=== PATIENT | male | born 1955 | race Caucasian/White ===

== ENCOUNTER 2022-03-19 07:47 | Day surgery (SDC) | payer MEDICARE, BC ==
[2022-03-17 14:22] VITALS: BMI 25.8
[~2022-03-19 07:47] MED LIST: LACTATED RINGERS 1,000 ML IV SCH
[2022-03-19 08:02] VITALS: TEMP 98.1
[2022-03-19] MEDS ORDERED: LIDOCAINE 2% INJ 20 MG/ML (2 ML VIAL) ONE (08:32)
[2022-03-19] MEDS ORDERED: MIDAZOLAM 2 MG/2 ML VIAL ONE (08:32)
[2022-03-19] MEDS ORDERED: PROPOFOL 10 MG/ML 20 ML VIAL IV ONE (08:32)
[2022-03-19] MEDS ORDERED: fentaNYL (PF) 50 MCG/ML 2 ML AMP ONE (08:32)
--- NOTE | 2022-03-19 08:38 | P.HPIHPCON ---
History of Present Illness H&P Date: 03/19/22 67-year-old male presents today for screening colonoscopy. He denies blood in his stool. Believes that he has had polyps in the past. Denies any family history with colon cancer. Consent for Procedure: I have explained the operation/procedure to the patient, including the risks, benefits, side effects, alternative therapies (including not receiving the proposed treatment or service), the likelihood of the patient achieving his/her goals, and potential recuperation problems for the procedure/sedation/analgesia, as well as any blood products, if indicated. I also explained to the patient the risks, benefits and side effects of the alternatives, as well as the risks related to not receiving the proposed procedure, care, treatment, or services. - Review of Systems All systems: negative Past Medical History Past Medical History: Hyperlipidemia, Osteoarthritis (OA) Additional Past Medical History / Comment(s): CHRONIC BACK PAIN/ARTHRITIS IN HANDS History of Any Multi-Drug Resistant Organisms: None Reported Past Surgical History: Orthopedic Surgery Additional Past Surgical History / Comment(s): BILATERAL KNEE SCOPES, colonoscopy. Past Anesthesia/Blood Transfusion Reactions: No Reported Reaction Smoking Status: Never smoker - Past Family History Sister(s) Family Medical History: Cancer Medications and Allergies Home Medications Medication Instructions Recorded Confirmed Type Ascorbic Acid [Vitamin C] 500 mg PO DAILY 06/06/15 03/17/22 History [place]eral-3 Fatty Acids/Fish Oil [Fish 1 tab PO DAILY 06/06/15 03/17/22 History Oil 1,000 mg Softgel] Pravastatin Sodium [Pravachol] 80 mg PO HS 06/06/15 03/17/22 History Vitamin B Complex 1 tab PO DAILY 06/06/15 03/17/22 History traMADol HCL [Tramadol HCl] 50 mg PO DAILY PRN 06/06/15 03/17/22 History Multivitamins, Thera [Multivitamin 1 tab PO DAILY 03/17/22 03/17/22 History (formulary)] Allergies Allergy/AdvReac Type Severity Reaction Status Date / Time No Known Allergies Allergy Verified 03/19/22 08:01 Surgical - Exam Osteopathic Statement: *. No significant issues noted on an osteopathic structural exam other than those noted in the History and Physical/Consult. Vital Signs Temp Pulse Resp BP Pulse Ox 98.1 F 79 20 139/78 98 03/19/22 08:02 03/19/22 08:02 03/19/22 08:02 03/19/22 08:02 03/19/22 08:02 - General well nourished, no distress - Eyes normal ocular movement - ENT no hearing loss - Neck trachea midline - Respiratory normal respiratory effort - Abdomen Abdomen: soft, non tender - Psychiatric oriented to time, oriented to person, oriented to place Assessment and Plan Plan: 67-year-old male presents today for screening colonoscopy. Risks, benefits and alternatives were provided. Further recommendations after procedure is completed.
--- NOTE | 2022-03-19 08:56 | P.PCN ---
Date of Procedure: 03/19/22 Preoperative Diagnosis: Screening Postoperative Diagnosis: Rectal polyp Procedure(s) Performed: Colonoscopy with hot snare polypectomy Anesthesia: MAC Surgeon: Kenan Marquis Pathology: other (Rectal polyp) Condition: stable Disposition: same day Indications for Procedure: 67-year-old male presents today for screening colonoscopy. He states he has had a history of polyps. Denies any blood in his stool. Denies any family history of colon cancer. Operative Findings: Rectal polyp Description of Procedure: The patient was brought into the endoscopy suite and placed in left lateral decubitus position and adequate sedation was achieved using conscious sedation. A digital rectal exam was performed and mild internal hemorrhoids were palpated. An endoscope was then placed in the rectum and advanced to the cecum was identified by landmarks including the appendiceal orifice and the ileocecal valve. The prep was good. The colonoscope was then slowly withdrawn, examining for any mucosal abnormalities. The cecum, ascending, transverse, descending and sigmoid colon were visualized adequately. There were no obvious neoplastic lesions throughout the colon. There was a notable polyp in the rectum. This was removed with hot snare polypectomy. Hemostasis was maintained. There is no evidence of diverticulosis. Retroflexion was performed in the rectum and internal hemorrhoids were visible. Excess air was removed, the colonoscope withdrawn and the procedure terminated. The patient was then transferred to the recovery unit in stable condition. Repeat colonoscopy should be performed in 5 years.
[2022-03-19 09:38] VITALS: BP 128/74; PULSE 79; RESP 15
== END 2022-03-19 09:49 | disposition home or self-care (01) ==
LOC: ORWHC2ENDO 07:47
PROVIDERS: ATTEND Surgery
DX: Z12.11 Encounter for screening for malignant neoplasm of colon (principal); D12.8 Benign neoplasm of rectum; Z86.010 Personal history of colon polyps; K64.8 Other hemorrhoids; E78.5 Hyperlipidemia, unspecified; M19.90 Unspecified osteoarthritis, unspecified site; G89.29 Other chronic pain; M54.9 Dorsalgia, unspecified; Z98.890 Other specified postprocedural states; Z80.9 Family history of malignant neoplasm, unspecified; Z97.2 Presence of dental prosthetic device (complete) (partial); Z79.899 Other long term (current) drug therapy
CPT/HCPCS: 88305; 45385; J2250; J3010; J2704; J2001

== ENCOUNTER 2024-02-29 06:21 | Day surgery (SDC) | payer MEDICARE, BC ==
--- NOTE | 2024-02-28 10:14 | P.HPOR ---
History of Present Illness H&P Date: 02/28/24 Subjective: This is a 68 year old male that presents today for initial evaluation regarding a several year history of progressively worsening right and left hand paresthesias in the thumb, index, middle and ring fingers. He also has occasional numbness and tingling in the left ring and small finger. He complains of right middle finger knuckle pain as well with pain with maximum flexion or extension. He denies any injury. The patient has tried bracing with minimal relief. They deny any inciting event or neck pain. Physical Examination: RUE: AIN/PIN/Radial/Ulnar/Median motor intact. Radial/Ulnar/Median SILT. 2+/4 Radial/Ulnar pulses palpated. 5/5 APB, 5/5 FDI. Negative Finkelsteins, negative CMC grind, positive Durkan's compression. LUE: AIN/PIN/Radial/Ulnar/Median motor intact. Radial/Ulnar/Median SILT. 2+/4 R adial/Ulnar pulses palpated. 5/5 APB, 3/5 FDI with atrophy. Negative Finkelsteins, negative CMC grind, positive Durkan's compression. Imaging: X-rays of the right hand 3V taken in office today demonstrate severe thumb CMC arthritis EMG/NCV: EMG/NCV performed on 09/13/23 demonstrates bilateral severe carpal tunnel syndrome. 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 Impression: 1.) Bilateral carpal tunnel syndrome, severe. 2.) Left cubital tunnel syndrome Plan: Diagnosis and treatment options were discussed with the patient. The patient has failed conservative treatment and would like to pursue a right endoscopic vs open carpal tunnel release. Risks and benefits of surgery including bleeding, infection, damage to surrounding tissue, need for further surgery, possible need to convert to open procedure, residual numbness due to severe pre-operative findings were discussed and the patient wished to go forward with surgery. CC: Ra Ritchie DO -cD Modi DO Orthopedic Hand/Upper Extremity Surgeon Past Medical History Past Medical History: Hyperlipidemia, Osteoarthritis (OA) Additional Past Medical History / Comment(s): CHRONIC BACK PAIN/ARTHRITIS IN HANDS; [place] hand/wrist numbness and pain x 7 months. History of Any Multi-Drug Resistant Organisms: None Reported Past Surgical History: Heart Catheterization, Hernia Repair, Orthopedic Surgery Additional Past Surgical History / Comment(s): [place] knee arthroscopy 1992 and 1994, colonoscopy, heart cath age 45 Past Anesthesia/Blood Transfusion Reactions: No Reported Reaction Smoking Status: Never smoker - Past Family History Sister(s) Family Medical History: Cancer Medications and Allergies Home Medications Medication Instructions Recorded Confirmed Type Ascorbic Acid [Vitamin C] 500 mg PO DAILY 06/06/15 02/24/24 History [place]-3 Fatty Acids/Fish Oil [Fish 1 tab PO DAILY 06/06/15 02/24/24 History Oil 1,000 mg Softgel] Pravastatin Sodium [Pravachol] 40 mg PO HS 06/06/15 02/24/24 History traMADol HCL 50 mg PO DAILY PRN 06/06/15 02/24/24 History Multivitamins, Thera [Multivitamin 1 tab PO DAILY 03/17/22 02/24/24 History (formulary)] Vitamin D 1 tab PO DAILY 02/24/24 02/24/24 History Allergies Allergy/AdvReac Type Severity Reaction Status Date / Time No Known Allergies Allergy Verified 02/24/24 14:38 Physical Examination Osteopathic Statement: *. No significant issues noted on an osteopathic structural exam other than those noted in the History and Physical/Consult.
[~2024-02-29 06:21] MED LIST changes: -LACTATED RINGERS 1,000 ML IV SCH; +Pre Op ABX Message 1 EACH MISC MISCELLANE ONE
[2024-02-29] MEDS: IV FLUID CONTINUATION 1,000 ML IV ONE (06:35)
[2024-02-29] MEDS: ONDANSETRON 4 MG/2 ML VIAL IVP PRN (07:04)
[2024-02-29] MEDS: DEXAMETHASONE SOD PHOSPHATE 4 MG/ML 1 ML VIAL IVP STA (07:05)
[2024-02-29] MEDS: LACTATED RINGERS 1,000 ML IV SCH (07:07)
[2024-02-29 07:18] VITALS: TEMP 97.3
[2024-02-29] MEDS ORDERED: LIDOCAINE 1% INJ 10MG/ML (20 ML MDV) ONE (07:18)
[2024-02-29] MEDS ORDERED: fentaNYL (PF) 50 MCG/ML 2 ML AMP ONE (07:18)
[2024-02-29] MEDS ORDERED: PROPOFOL 10 MG/ML 20 ML VIAL IV ONE (07:18)
[2024-02-29] MEDS ORDERED: MIDAZOLAM 2 MG/2 ML VIAL ONE (07:18)
[2024-02-29] MEDS: BUPIVACAINE (PF) 0.5% 30 ML VIAL SQ ONE ×2 (07:25→07:27)
[2024-02-29] MEDS: LIDOCAINE 2% INJ 20 MG/ML SQ ONE ×2 (07:25→07:27)
[2024-02-29 07:51] VITALS: RESP 16
--- NOTE | 2024-02-29 07:55 | P.OP ---
Date of Procedure: 02/29/24 Preoperative Diagnosis: Right carpal tunnel syndrome Postoperative Diagnosis: Right carpal tunnel syndrome Procedure(s) Performed: Right endoscopic carpal tunnel release Anesthesia: MAC Surgeon: Dc Modi Estimated Blood Loss (ml): 0 Pathology: none sent Condition: stable Description of Procedure: This is a 69 year old male who presents today for a right endoscopic carpal tunnel release after having failed conservative treatment in the past. Risks and benefits of surgery were discussed with the patient including bleeding, damage to surrounding tissue, infection, need to convert to open procedure, need for further surgery as well as risks of anesthesia including pulmonary embolism and even and the patient wished to proceed with surgical intervention. The patients was seen in the pre-operative area by myself. Consent and H&P were completed and updated. The correct extremity was marked in the pre-operative area by myself and all other questions were answered. Operative Narrative: The patient was brought to the operating room by the department of anesthesi a. They remained on the portable stretcher and a rolling hand table was brought to the side of the operative extremity. Pre-operative time out was performed indicating the correct patient, procedure and laterality. All in the room agreed. The patient was then drifted off to sleep by the department of anesthesia. MAC anesthesia was utilized and a 50:50 mixture of 1% Lidocaine and 0.5% bupivacaine was injected into the subcutaneous tissues of the palmar skin, 8ccs total. A nonsterile tourniquet was then applied to the operative extremity and the right upper extremity was then prepped and draped in normal sterile fashion. The operative extremity was the exsanguinated with an esmarch bandage and the tourniquet was inflated to 250mmHg. 15 blade scalpel was utilized to make a transverse incision on the palmar skin just ulnar to the palmaris longus tendon at the level of the distal wrist crease. Ragnell retractor was then placed radially and blunt dissection was performed to reveal the distal forearm fascia. This was lifted with fine Uday pick ups and Littler tenotomy scissors were then used to open the forearm fascia transversely and a double skin hook was then placed. Hamate finder was placed into the carpal tunnel and then sequential sized dilators were inserted followed by the synovial elevator to separate the flexor tenosynovium from the undersurface of the transverse carpal ligament and a washboard texture was felt. The MicroAire endoscopic carpal tunnel release system gun was the then inserted into the carpal tunnel hugging the deep portion of the transverse carpal ligament in line with the base of the ring finger. Transverse fibers of the ligament were directly visualized. Pressure was applied on the palm to reveal the distal extent of the transverse carpal ligament. The blade was then deployed and the distal half of the transverse carpal ligament was released. The scope was then brought distal again and remaining transverse fibers were incised with the blade. The proximal half of the transverse carpal ligament was then divided and again the scope was advanced distal and remaining transverse fibers were incised with the blade. The radial and ulnar leaflets were directly visualized and mobile consistent with complete release. Tenotomy scissors were then utilized to release the remaining distal forearm fascia under direct visualization taking care to preserve the palmar cutaneous branch of the median nerve. Skin closure was performed with interrupted 4-0 Monocryl suture followed by steri strips. Sterile dressing was applied consisting 4x4s, Webril, and an nadia bandage. Tourniquet was let down and the hand immediately was well perfused. The patient was then woken by the department of anesthesia and transferred to PACU in stable condition. Dc Modi D.O. Orthopedic Hand/Upper Extremity Surgeon
[2024-02-29 08:17] VITALS: BP 123/80; PULSE 66
== END 2024-02-29 08:22 | disposition home or self-care (01) ==
LOC: OR 06:21
PROVIDERS: ATTEND Orthopaedic Surgery Hand Surgery
DX: G56.03 Carpal tunnel syndrome, bilateral upper limbs (principal); G56.22 Lesion of ulnar nerve, left upper limb; E78.5 Hyperlipidemia, unspecified; M19.90 Unspecified osteoarthritis, unspecified site; Z79.899 Other long term (current) drug therapy
CPT/HCPCS: 29848; J2001 ×2; J2250; J1100; J2405; J3010; J2704; J0665

== ENCOUNTER 2024-04-25 07:37 | Day surgery (SDC) | payer MEDICARE, BC ==
--- NOTE | 2024-04-23 11:17 | P.HPOR ---
History of Present Illness H&P Date: 04/23/24 Subjective: This is a 69 year old male that presents today for a post-operative visit after undergoing right endoscopic carpal tunnel release on 02/29/24. They state they have resolved numbness and mild pain in the palm and have been using the hand as tolerated. He is scheduled for is left carpal tunnel release on 04/04/24. Physical Examination: RUE: AIN/PIN/Radial/Ulnar/Median motor intact. Radial/Ulnar/Median SILT. 2+/4 Radial/Ulnar pulses palpated. Incision well healed. Able to make a full fist. Impression: 1.) S/P Right endoscopic carpal tunnel release 2.) Left carpal tunnel syndrome, severe. Plan: Diagnosis and treatment options were discussed with the patient. They are healing as expected and may continue to use the hand as tolerated. He wishes to go forward with a left endoscopic vs open carpal tunnel release. Risks and benefits of surgery including bleeding, infection, damage to surrounding tissue, need for further surgery, possible need to convert to open procedure, residual numbness were discussed and the patient wished to go forward with surgery. The patient is agreeable with this plan. -Dc Modi DO Orthopedic Hand/Upper Extremity Surgeon Past Medical History Past Medical History: Hyperlipidemia, Osteoarthritis (OA) Additional Past Medical History / Comment(s): CHRONIC BACK PAIN/ARTHRITIS IN HANDS; [place] hand/wrist numbness and pain x 7 months. History of Any Multi-Drug Resistant Organisms: None Reported Past Surgical History: Heart Catheterization, Hernia Repair, Orthopedic Surgery Additional Past Surgical History / Comment(s): [place] knee arthroscopy 1992 and 1994, colonoscopy, heart cath age 45 Past Anesthesia/Blood Transfusion Reactions: No Reported Reaction Smoking Status: Never smoker - Past Family History Sister(s) Family Medical History: Cancer Medications and Allergies Home Medications Medication Instructions Recorded Confirmed Type Ascorbic Acid [Vitamin C] 500 mg PO DAILY 06/06/15 02/24/24 History [place]-3 Fatty Acids/Fish Oil [Fish 1 tab PO DAILY 06/06/15 02/24/24 History Oil 1,000 mg Softgel] Pravastatin Sodium [Pravachol] 40 mg PO HS 06/06/15 02/24/24 History traMADol HCL 50 mg PO DAILY PRN 06/06/15 02/24/24 History Multivitamins, Thera [Multivitamin 1 tab PO DAILY 03/17/22 02/24/24 History (formulary)] Vitamin D 1 tab PO DAILY 02/24/24 02/24/24 History Allergies Allergy/AdvReac Type Severity Reaction Status Date / Time No Known Allergies Allergy Verified 02/24/24 14:38 Physical Examination Osteopathic Statement: *. No significant issues noted on an osteopathic structural exam other than those noted in the History and Physical/Consult.
[~2024-04-25 07:37] MED LIST changes: +HYDROmorphone 0.5 MG/0.5 ML SYRINGE IVP PRN; +LIDOCAINE 1% (10MG/ML) FOR IV START INTRADERMA PRN
[2024-04-25] MEDS: LACTATED RINGERS 1,000 ML IV SCH (08:09)
[2024-04-25] MEDS: ONDANSETRON 4 MG/2 ML VIAL IVP ONE (08:09)
[2024-04-25 08:12] VITALS: TEMP 97
[2024-04-25] MEDS: IV FLUID CONTINUATION 1,000 ML IV ONE (08:15)
[2024-04-25] MEDS ORDERED: PROPOFOL 10 MG/ML 20 ML VIAL IV ONE (08:28)
[2024-04-25] MEDS ORDERED: fentaNYL (PF) 50 MCG/ML 2 ML AMP ONE (08:28)
[2024-04-25] MEDS ORDERED: MIDAZOLAM 2 MG/2 ML VIAL ONE (08:28)
[2024-04-25] MEDS: LIDOCAINE 2% INJ 20 MG/ML SQ ONE ×2 (08:32→08:36)
[2024-04-25] MEDS: BUPIVACAINE (PF) 0.5% 30 ML VIAL SQ ONE ×2 (08:32→08:36)
[2024-04-25 09:26] VITALS: RESP 16
[2024-04-25 09:27] VITALS: BP 115/79; PULSE 70
--- NOTE | 2024-05-30 09:19 | P.OP ---
Date of Procedure: 04/25/24 Preoperative Diagnosis: Left carpal tunnel syndrome Postoperative Diagnosis: Left carpal tunnel syndrome Procedure(s) Performed: Left endoscopic carpal tunnel release Anesthesia: MAC Surgeon: Dc Modi Supervisor Yard #1: Lauro Booker Estimated Blood Loss (ml): 0 Pathology: none sent Condition: stable Disposition: PACU Description of Procedure: This is a 69 year old male who presents today for a left endoscopic carpal tunnel release after having failed conservative treatment in the past. Risks and benefits of surgery were discussed with the patient including bleeding, damage to surrounding tissue, infection, need to convert to open procedure, need for further surgery as well as risks of anesthesia including pulmonary embolism and even and the patient wished to proceed with surgical intervention. The patients was seen in the pre-operative area by myself. Consent and H&P were completed and updated. The correct extremity was marked in the pre-operative area by myself and all other questions were answered. Operative Narrative: The patient was brought to the operating room by the department of anesthesia. They remained on the portable stretcher and a rolling hand table was brought to the side of the operative extremity. Pre-operative time out was performed indicating the correct patient, procedure and laterality. All in the room agreed. The patient was then drifted off to sleep by the department of anesthesia. MAC anesthesia was utilized and a 50:50 mixture of 1% Lidocaine and 0.5% bupivacaine was injected into the subcutaneous tissues of the palmar skin, 8ccs total. A nonsterile tourniquet was then applied to the operative extremity and the left upper extremity was then prepped and draped in normal sterile fashion. The operative extremity was the exsanguinated with an esmarch bandage and the tourniquet was inflated to 250mmHg. 15 blade scalpel was utilized to make a transverse incision on the palmar skin just ulnar to the palmaris longus tendon at the level of the distal wrist crease. Ragnell retractor was then placed radially and blunt dissection was performed to reveal the distal forearm fascia. This was lifted with fine Uday pick ups and Littler tenotomy scissors were then used to open the forearm fascia transversely and a double skin hook was then placed. Hamate finder was placed into the carpal tunnel and then sequential sized dilators were inserted followed by the synovial elevator to separate the flexor tenosynovium from the undersurface of the transverse carpal ligament and a washboard texture was felt. The MicroAire endoscopic carpal tunnel release system gun was the then inserted into the carpal tunnel hugging the deep portion of the transverse carpal ligament in line with the base of the ring finger. Transverse fibers of the ligament were directly visualized. Pressure was applied on the palm to reveal the distal extent of the transverse carpal ligament. The blade was then deployed and the distal half of the transverse carpal ligament was released. The scope was then brought distal again and remaining transverse fibers were incised with the blade. The proximal half of the transverse carpal ligament was then divided and again the scope was advanced distal and remaining transverse fibers were incised with the blade. The radial and ulnar leaflets were directly visualized and mobile consistent with complete release. Tenotomy scissors were then utilized to release the remaining distal forearm fascia under direct visualization taking care to preserve the palmar cutaneous branch of the median nerve. Skin closure was performed with interrupted 4-0 Monocryl suture followed by steri strips. Sterile dressing was applied consisting 4x4s, Webril, and an nadia bandage. Tourniquet was let down and the hand immediately was well perfused. The patient was then woken by the department of anesthesia and transferred to PACU in stable condition. Lauro GAMBINO was present for the case in its entirety and assisted in major portions of the case and protection of vital neurovascular structures. Dc Modi D.O. Orthopedic Hand/Upper Extremity Surgeon
== END 2024-04-25 09:39 | disposition home or self-care (01) ==
LOC: OR 07:37
PROVIDERS: ATTEND Orthopaedic Surgery Hand Surgery
DX: G56.02 Carpal tunnel syndrome, left upper limb (principal); E78.5 Hyperlipidemia, unspecified; M19.042 Primary osteoarthritis, left hand; Z98.890 Other specified postprocedural states; Z79.899 Other long term (current) drug therapy
CPT/HCPCS: J2001; J2250; J2405; J3010; J2704; J0665

== ENCOUNTER → 2024-08-20 | Outpatient (CLI) | payer MEDICARE, BC ==
--- NOTE | 2024-08-20 13:59 | MR ---
EXAMINATION TYPE: MR shoulder LT wo con DATE OF EXAM: 08/20/2024 11:37 AM COMPARISON: X-ray 08/14/2024 CLINICAL INDICATION: Male, 69 years old with history of M25.512 L shoulder pain, Left shoulder pain, no trauma. IV Contrast: cc (None if empty) TECHNIQUE: Multiplanar, multisequence imaging of the shoulder is performed without contrast. FINDINGS: Rotator Cuff: There is a through thickness partial tear of the distal margin of the supraspinatus ten don with minimal residual posterior fibers. Infraspinatus tendon appears intact. There is some increased bursal surface signal along the posterio r fibers likely representing degree of bursal scuffing. The very anterior fibers within the conjoined tendon demonstrate increased signal at the insertion compatible with tendinosis Subscapularis tendon appears intact Acromioclavicular Joint: There is mild to moderate hypertrophic arthropathy of the AC joint. There is mild mass effect upon the superior margin of the supraspinatus tendon and muscle. There is a small a mount fluid in the subacromial subdeltoid space. Glenohumeral Joint: Mild glenohumeral joint space arthropathy. Trace amount of fluid likely physiolog ic. Inferior glenohumeral ligament intact. Labrum: The labrum appears grossly intact given limitation of non-arthrogram study. Biceps Tendon: The long head of biceps is in normal location within bicipital groove. However, there is increased fluid surrounding the bicipital tendon compatible with tendinosis. Within the rotator in terval there is thickening and diffuse increased signal of the biceps tendon suggestive of severe ten dinosis. A partial split tear not excluded. Bone marrow signal: Marrow changes involving the AC joint are likely post arthritic and reactive. Other: No additional significant abnormality is appreciated. IMPRESSION: 1. Diffuse tendinopathy of the distal supraspinatus tendon with a near-complete partial through thick ness tear. A few residual posterior fibers remain intact. 2. Tendinosis anterior fibers insertion infraspinatus tendon. 3. Bicipital tendinosis with and increased signal within the tendon at the level of the rotator inter seth. 4. Mild impingement. [facility], , 08/20/2024 1:57 PM
== END | disposition home or self-care (01) ==
LOC: RADMRIMAIN 11:04
PROVIDERS: ATTEND Orthopaedic Surgery
DX: M75.112 Incomplete rotator cuff tear or rupture of left shoulder, not specified as traumatic (principal); M67.814 Other specified disorders of tendon, left shoulder; M25.812 Other specified joint disorders, left shoulder; M12.812 Other specific arthropathies, not elsewhere classified, left shoulder

== ENCOUNTER 2024-10-18 07:48 | Day surgery (SDC) | payer MEDICARE, BC ==
--- NOTE | 2024-10-17 23:17 | HP ---
HISTORY AND PHYSICAL DATE OF SURGERY: 10/18/2024. HISTORY OF PRESENT ILLNESS: Ayo Snyder is a 69-year-old gentleman, seen with progressive left shoulder pain. We discussed options regarding treatment. He elected to proceed with left shoulder arthroscopy. Consent was obtained. PAST MEDICAL HISTORY: Hyperlipidemia. PAST SURGICAL HISTORY: Knee arthroscopy and herniorrhaphy. DAILY MEDICATIONS: 1. Pravastatin. 2. Tramadol. 3. Motrin. ALLERGIES: None. SOCIAL HISTORY: Denies tobacco use. PHYSICAL EVALUATION OF THE LEFT SHOULDER: Flexion is 100 degrees. Abduction is 70 degrees. External rotation is 40 degrees with weakness and pain. Tenderness along the anterolateral acromion, bicipital groove, rotator cuff tendon, long head biceps tendon. Impingement sign is positive at 80 degrees. Cross-body adduction sign is positive. Drop-arm sign is positive. Distal neurovascular exam is intact. IMAGING STUDIES: Left shoulder radiographs revealed a type 2 acromion, cystic changes of the tuberosity. MRI of left shoulder, rotator cuff tendon tear, biceps tendonitis, impingement. IMPRESSION: 1. Left shoulder impingement with rotator cuff tear. 2. Left shoulder bicipital tendinitis. 3. Left shoulder acromioclavicular joint osteoarthritis. 4. Hyperlipidemia. PLAN: Left shoulder arthroscopy with subacromial decompression, arthroscopic rotator cuff repair, biceps tenodesis, Ricarda, and debridement. MMODL / IJN: [id number] /
[2024-10-18] MEDS ORDERED: LIDOCAINE 1% (10MG/ML) FOR IV START INTRADERMA PRN (07:50)
[2024-10-18] MEDS ORDERED: fentaNYL (PF) 50 MCG/ML 2 ML AMP IVP PRN (07:50)
[2024-10-18] MEDS ORDERED: HYDROmorphone 0.5 MG/0.5 ML SYRINGE IVP PRN (07:50)
[2024-10-18] MEDS: IV FLUID CONTINUATION 1,000 ML IV ONE (07:53)
[2024-10-18] MEDS: LACTATED RINGERS 1,000 ML IV SCH (08:30)
[2024-10-18] MEDS: MIDAZOLAM 2 MG/2 ML VIAL IV PRN (08:44)
--- NOTE | 2024-10-18 08:56 | P.ANPRN ---
Procedure Note - Anesthesia - Nerve Block Performed Left Interscalene Single Time Out Performed: Yes Date of Procedure: 10/18/24 Procedure Start Time: 08:43 Procedure Stop Time: 08:48 Location of Patient: PreOp Indication: Acute Post-Operative Pain, Analgesia, Requested by Surgeon Sedation Type: Sedate with meaningful contact maintained Preparation: Sterile Prep Position: Sitting Catheter: None Needle Types: Pajunk Needle Gauge: 21 Ultrasound used to visualize needle placement: Yes Ultrasound used to observe medication spread: Yes Injectate: 0.5% Ropivacaine (see comment for volume) (Ropiv 20ml+[id number]) Blood Aspirated: No Pain Paresthesia on Injection Noted: No Resistance on Injection: Normal Image Stored and Saved: Yes Events: Uneventful and Well Tolerated
[2024-10-18] MEDS: ONDANSETRON 4 MG/2 ML VIAL IVP ONE (09:00)
[2024-10-18] MEDS: DEXAMETHASONE SOD PHOSPHATE 4 MG/ML 1 ML VIAL IV ONE (09:01)
[2024-10-18] MEDS ORDERED: PROPOFOL 10 MG/ML 20 ML VIAL IV ONE (09:25)
[2024-10-18] MEDS ORDERED: DEXAMETHASONE SOD PHOSPHATE 4 MG/ML 1 ML VIAL ONE (09:25)
[2024-10-18] MEDS ORDERED: MIDAZOLAM 2 MG/2 ML VIAL ONE (09:25)
[2024-10-18] MEDS ORDERED: KETOROLAC 15 MG/ML 1 ML VIAL ONE (09:25)
[2024-10-18] MEDS ORDERED: ROPIVACAINE 5 MG/ML 30 ML VIAL ONE (09:25)
[2024-10-18] MEDS ORDERED: LIDOCAINE 1% INJ 10MG/ML (20 ML MDV) ONE (09:25)
[2024-10-18] MEDS ORDERED: fentaNYL (PF) 50 MCG/ML 2 ML AMP ONE (09:25)
[2024-10-18] MEDS ORDERED: LIDOCAINE 4% LTA KIT (4 ML) TOPICAL ONE (09:25)
[2024-10-18] MEDS ORDERED: SUCCINYLCHOLINE CHLORIDE 200 MG/10 ML VIAL IV ONE (09:25)
[2024-10-18 11:06] VITALS: TEMP 97.1
--- NOTE | 2024-10-18 11:08 | P.OP ---
Date of Procedure: 10/18/24 Preoperative Diagnosis: Left shoulder impingement Postoperative Diagnosis: 1. Left shoulder rotator cuff tear 2. Left shoulder impingement 3. Left shoulder partial long head biceps tendon tear 4. Left shoulder acromioclavicular joint osteoarthritis 5. Left shoulder superficial labral tear Procedure(s) Performed: 1. Left shoulder arthroscopic rotator cuff repair 2. Left shoulder arthroscopic subacromial decompression 3. Left shoulder arthroscopic biceps tenodesis 4. Left shoulder arthroscopic Ricarda procedure 5. Left shoulder arthroscopic debridement labral tear Implants: 5Arthrex 4.75 swivel lock anchors Anesthesia: GETA, regional (Interscalene block) Surgeon: Fer Batres Patient Safety Officer #1: Vu Helton Estimated Blood Loss (ml): 10 Pathology: none sent Condition: stable Disposition: PACU Indications for Procedure: 69-year-old gentleman seen with progressive left shoulder pain. After having treatment options discussed, he elected to proceed with arthroscopy. Operative Findings: See description of procedure Description of Procedure: Patient underwent an interscalene block by department of anesthesia. The patient was then taken to the operative suite. The patient underwent a general anesthetic by the department of anesthesia. The patient was placed into a lateral position and secured. There was appropriate padding of the bony promi nence. Left shoulder was then prepped and draped in normal sterile orthopedic fashion. We placed the extremity in 10 pounds of longitudinal traction. A posterior incision was now made for a posterior working portal site. The trocar and cannula were inserted into the glenohumeral joint. Arthroscopy was initiated. Spinal needle was now inserted anteriorly, to ascertain the anterior working portal site. An incision was now made in that area, a trocar was inserted followed by a probe. There was significant partial tearing long head biceps tendon along with hyperemia. There was some superficial tearing of the superior labrum. There was no significant chondromalacia present. Reduced a motorized shaver and debrided out the superficial labral tear getting down to stable labral tissue. I decided to proceed with arthroscopic biceps tenodesis. I introduced the cannula through the anterior portal site. I passed a loop and tack type stitch through the biceps tendon. I released the biceps tendon from the superior labral anchor. With the assistance of a Aiden GAMBINO I punched hole at the interval for insertion of an anchor. I passed the suture limb through the eyelet of an Arthrex 4.75 swivel lock anchor. I placed the swivel lock anchor eyelet into the prepunch hole. I held it in position while Aiden GAMBINO tensioned the suture and deployed the anchor with good fixation noted. The residual suture limb was clipped. We had a stable appearing biceps tenodesis. Instruments were now removed from the glenohumeral joint. Utilizing the posterior working portal site, the trocar and cannula were inserted into the subacromial space. Arthroscopy initiated. I made an incision 2 fingerbreadths lateral to the acromion. I introduced my trocar followed by my ArthroCare ablator. I now began ablating thick subacromial bursal tissue, which exposed the undersurface of the anterior acromion. There was diminished subacromial space. There was a very prominent anterior acromion. A motorized bur was introduced and a subacromial decompression was performed. I also excised some osteophytes off the inferior aspect of the distal clavicle. The AC joint was visualized and noted to be fairly arthritic. The motorized bur was introduced in the anterior portal site and a Ricarda procedure was performed without difficulty, decompressing the AC joint nicely. I turned my attention to the rotator cuff. There was a 2.53 cm rotator cuff tear. I debrided the margins getting down to stable tendon tissue. The defect/tear measured nearly 3 cm but was freely mobile over the footprint. I introduced my motorized bur and abraded the footprint area, getting some petechial bleeding. I now made an accessory portal site off the lateral aspect of the acromion. I punched 2 holes medial for medial row fixation with the assistance of Aiden GAMBINO carefully tapping the punch with a mallet as I held the punch and the camera. I now introduced both anchors into the pre-punched holes and Aiden GAMBINO tapped them with the mallet as I held anchors and the camera. Aiden GAMBINO now screwed the anchors in place a while I held the anchor guide and camera. All 8 limbs of suture were now passed through good bites of rotator cuff tendon. I now punched 2 holes for lateral row fixation again I held the punch and camera while Aiden GAMBINO used a mallet to tap in the punch. We now passed sutures through both anchors and individually I introduced the anchors into the pre- punch holes I held the anchor guide in position with one hand holding the camera with the other hand while Aiden GAMBINO tensioned the sutures and screwed in the anchors one at a time. All residual suture limbs were now clipped. We had good compression of the tendon along the entire footprint. Instruments now removed from the portal sites. All portal sites were approximated with nylon suture. Sterile dressings were applied followed by a shoulder immobilizer. Vu GAMBINO assisted in this complex case. The patient was awakened, transferred to a bed, and taken to recovery in stable condition.
[2024-10-18] MEDS: METOCLOPRAMIDE 5 MG/ML 2 ML VIAL IVP STA (11:21)
[2024-10-18 11:44] VITALS: RESP 16
[2024-10-18 13:20] VITALS: BP 127/77; PULSE 72
== END 2024-10-18 13:17 | disposition home or self-care (01) ==
LOC: OR 07:48
PROVIDERS: ATTEND Orthopaedic Surgery
DX: M75.112 Incomplete rotator cuff tear or rupture of left shoulder, not specified as traumatic (principal); S46.112A Strain of muscle, fascia and tendon of long head of biceps, left arm, initial encounter; M19.012 Primary osteoarthritis, left shoulder; M75.42 Impingement syndrome of left shoulder; G89.18 Other acute postprocedural pain; E78.5 Hyperlipidemia, unspecified; Z79.899 Other long term (current) drug therapy
CPT/HCPCS: 29827; 29828; 29826; 29824; 64415; C1713 ×3; J2250; J0330; J1100; J2765; J0690; J2405; J2003; J3010; J2795; J1885; J2704